=== PATIENT | female | born 2000 | race African-American/Black ===

== ENCOUNTER 2020-09-06 13:04 | Emergency (ER) | payer MEDICAID ==
[~2020-09-06] VITALS: Ht 154.9 cm; Wt 42.6 kg
[~2020-09-06 13:04] MED LIST: CEPHALEXIN500 M1 ORAL; PRENATAL + DHA1 EAC1 PO
[2020-09-06 13:23] VITALS: BP 110/75
[2020-09-06 13:37] LABS: APPEARANCE,URINE SLIGHTLY CLOUDY; BILIRUBIN, URINE NEGATIVE (NEGATIVE); GLUCOSE, URINE (UA) NEGATIVE (NEGATIVE); KETONES,URINE 2+ (NEGATIVE); LEUKOCYTE ESTERASE ,URINE 3+ (NEGATIVE); NITRITE,URINE NEGATIVE (NEGATIVE); PH,URINE 7 (4.5-8.0); PROTEIN,URINE 1+ (NEGATIVE); UROBILINOGEN,URINE 1 MG/DL (0.0-1.0)
[2020-09-06 13:40] LABS: COLOR,URINE YELLOW
[2020-09-06] MEDS ORDERED: CEPHALEXIN500 MG ORAL (14:10)
--- NOTE | 2020-09-06 14:10 | Emergency Room Report ---
History of Present Illness General Chief Complaint: Female Urogenital Problems Source: Patient Present Illness HPI 20 YO female who is 7 months , presents to the ED c/o lower abdominal fullness and urinary frequency similar to previous presentation 1 month ago when she was dx'd with a UTI. Pt. reports She still has a pill left to take today. Pt. described the pharmacy not having her rx ready in time when she went to fill the original rx, and then she explained that she takes 2-3 pills a day because she "doesn't wake up until 11am each day". She denies pain at this time. she denies dysuria. She denies hematuria or vaginal d/c. Pt. reports she has had follow up with her OBGYN after her last ED visit and was told "Everything is going ok". Pt. states her next OBGYN appt. is this . She denies nausea or vomiting. She denies fevers or chills. She denies cramping sensations. She denies constipation and reports having two episodes of looser than normal stool the past week but contributes it to "drinking OJ which goes right through her". Allergies: Coded Allergies: No Known Allergies (Unverified , 08/11/20) COVID-19 Screening Contact w/high risk pt: No Experienced COVID-19 symptoms?: No COVID-19 Testing performed RESIDENCE LEASING AGENT: No Patient History Past Medical History: see triage record Past Surgical History: none Pertinent Family History: none Now: Yes Reviewed Nursing Documentation: PMH: Agreed; PSxH: Agreed Nursing Documentation-PMH Past Medical History: No Stated History Review of Systems All Other Systems: negative except mentioned in HPI Physical Exam Vital Signs Date Time Temp Pulse Resp B/P (MAP) Pulse Ox O2 Delivery O2 Flow Rate FiO2 09/06/20 13:08 98.1 93 20 110/75 (87) 98 Room Air Sp02 EP Interpretation: reviewed, normal General Appearance: no apparent distress, alert, GCS 15, non-toxic Head: normocephalic, atraumatic Eyes: bilateral eye normal inspection, bilateral eye PERRL ENT: hearing grossly normal, normal voice Neck: full range of motion Respiratory: chest non-tender, lungs clear, normal breath sounds, speaking full sentences Cardiovascular #1: regular rate, rhythm, no edema, normal capillary refill Gastrointestinal: normal bowel sounds, non tender, soft, no peritonitis, non- distended, other - Gravid Genitourinary: normal inspection, no CVA tenderness Musculoskeletal: normal range of motion, gait/station normal, non-tender Neurologic: alert, motor strength/tone normal, oriented x3, sensory intact, responsive, speech normal Psychiatric: judgement/insight normal Skin: no rash Lymphatic: no adenopathy Medical Decision Making PA Attestation Dr. Cash is my supervising Physician whom patient management has been discussed with. Diagnostic Impression: Primary Impression: UTI in Qualified Codes: O23.43 - Unspecified infection of urinary tract in , third trimester ER Course 20 YO female who is 7 months , presents to the ED c/o lower abdominal fullness and urinary frequency similar to previous presentation 1 month ago when she was dx'd with a UTI. Pt. reports She still has a pill left to take today. Pt. described the pharmacy not having her rx ready in time when she went to fill the original rx, and then she explained that she takes 2-3 pills a day because she "doesn't wake up until 11am each day". She denies pain at this time. she denies dysuria. She denies hematuria or vaginal d/c. Pt. reports she has had follow up with her OBGYN after her last ED visit and was told "Everything is going ok". Pt. states her next OBGYN appt. is this . She denies nausea or vomiting. She denies fevers or chills. She denies cramping sensations. She denies constipation and reports having two episodes of looser than normal stool the past week but contributes it to "drinking OJ which goes right through her". Ddx considered but are not limited to UTi , Pyelo, STI, Stone, Cystitis Vital signs: are WNL, pt. is afebrile H&PE are most consistent with UTI during with non-compliance with previous abx treatment regimen. ORDERS: - UA labs are attached - moderate bacteria, elevated inflammatory markers. c/w persistent UTI. ED INTERVENTIONS: None required at this time. PT. Education: correctly taking her antibiotic medications as prescribed. d/w pt. that she should set an alarm every 6 hours. d/w pt. the complic ations as well as health complications to her or her unborn baby that can arise from an untreated UTI. DISCHARGE: At this time pt. is stable for d/c to home. Will provide printed patient care instructions, and any necessary prescriptions. Care plan and follow up instructions have been discussed with the patient prior to discharge. Labs Test 09/06/20 13:20 Urine Color Yellow Urine Appearance Slightly cloudy Urine pH 7 (4.5-8.0) Urine Specific [place] 1.010 (1.005-1.035) Urine Protein 1+ (NEGATIVE) Urine Glucose (UA) Negative (NEGATIVE) Urine Ketones 2+ (NEGATIVE) Urine Blood 1+ (NEGATIVE) Urine Nitrite Negative (NEGATIVE) Urine Bilirubin Negative (NEGATIVE) Urine Urobilinogen 1 MG/DL (0.0-1.0) Urine Leukocyte Esterase 3+ (NEGATIVE) Urine RBC 2-4 /HPF (0 - 2) Urine WBC 20-30 /HPF (0 - 2) Urine Squamous Epithelial Cells Many /LPF (NONE/OCC) Urine Bacteria Many /HPF (NONE) Last Vital Signs Date Time Temp Pulse Resp B/P (MAP) Pulse Ox O2 Delivery O2 Flow Rate FiO2 09/06/20 13:23 98.1 88 20 110/75 98 Room Air Disposition: HOME, SELF-CARE Condition: Stable Scripts Cephalexin* (KEFLEX*) 500 Mg Capsule 500 MG ORAL EVERY 6 HOURS for 7 Days, #28 CAP Prov: Madison Dyson 09/06/20 Referrals: NOT CHOSEN IPA/,REFERRING (PCP) Patient Instructions: Urinary Tract Infection Additional Instructions: Take medications as directed. One Pill EVERy 6 Hours , a total of 4 pills each day Follow up with a OBGYN within 3 days, even if your symptoms have resolved. Return sooner to ED if new symptoms occur, or current symptoms become worse. - Please note that this Emergency Department Report was dictated using [employer] engineering director technology software, occasionally this can lead to erroneous entry secondary to interpretation by the dictation equipment. Madison Dyson Sep 06, 2020 14:10
[2020-09-06 14:20] VITALS: BP 110/75
== END 2020-09-06 14:20 | disposition home or self-care (01) ==
LOC: EMR 13:45
DX: O23.43 Unspecified infection of urinary tract in pregnancy, third trimester (principal); Z3A.00 Weeks of gestation of pregnancy not specified
CPT/HCPCS: 81003; 87086; Z7502; 99282